=== PATIENT | female | born 2000 | race Caucasian/White ===

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

== ENCOUNTER 2022-10-07 14:58 | Emergency (ER) | payer MEDICAID ==
[~2022-10-07] VITALS: Ht 154.9 cm; Wt 52.8 kg
[2022-10-07 15:22] VITALS: TEMP 97.8
[2022-10-07 16:12] LABS: BILIRUBIN,URINE NEGATIVE (Neg); CLARITY,URINE CLOUDY (Clear); COLOR,URINE YELLOW (Yellow); GLUCOSE, URINE NEGATIVE (Neg); KETONES,URINE TRACE mg/dl (Neg); LEUKOCYTE ESTERASE ,URINE TRACE (Neg); NITRITES, URINE NEGATIVE (Neg); OCCULT BLOOD,URINE TRACE-INTACT (Neg); PROTEIN,URINE NEGATIVE (Neg); URINE HCG NEGATIVE (NEG)
[2022-10-07 16:14] LABS: UA COLLECTION TYPE CLN CATCH MIDSTREAM
[2022-10-07] MEDS ORDERED: iohexol 300mg/ml 100ml inj. ONE (16:21)
[2022-10-07 16:24] LABS: BACTERIA,URINE 2+ /HPF (Neg); SQUAMOUS EPITHELIAL CELL,UR MODERATE /LPF (FEW)
[2022-10-07 16:25] LABS: AMORPHOUS PHOSPHATES 1+
[2022-10-07] MEDS ORDERED: normal saline 1000ml 1,000 ML IV ONE (16:25)
[2022-10-07 16:44] LABS: BASOPHILS % (AUTO) 0.4 % (0-1); EOSINOPHILS # (AUTO) 0.2 X10'3 (0-0.9); EOSINOPHILS % (AUTO) 1.4 % (0-6); HEMATOCRIT 42.6 % (35.0-45.0); HEMOGLOBIN 14.4 g/dl (12.0-16.0); LYMPHOCYTES # (AUTO) 1.6 X10'3 (1.1-4.8); LYMPHOCYTES % (AUTO) 12.1 % (21-51); MEAN CORPUSCULAR HEMOGLOBIN 30.9 PG (27.0-31.0); MEAN CORPUSCULAR HGB CONC 33.7 g/dL (33.0-36.5); MEAN CORPUSCULAR VOLUME 91.6 FL (78-98); MEAN PLATELET VOLUME 8.8 FL (7.4-10.4); MONOCYTES # (AUTO) 0.8 X10'3 (0-0.9); MONOCYTES % (AUTO) 6.1 % (2-12); NEUTROPHILS # (AUTO) 10.2 X10'3 (1.8-7.7); PLATELET COUNT 308 X10'3 (140-440); RED BLOOD COUNT 4.66 X10'6 (4.20-5.60); RED CELL DISTRIBUTION WIDTH 13.1 % (11.5-14.5); WHITE BLOOD COUNT 12.8 X10'3 (4.5-11.0)
[2022-10-07 16:56] LABS: ALANINE AMINOTRANSFERASE 23 U/L (12-78); ALBUMIN 4.4 G/DL (3.4-5.0); ALBUMIN/GLOBULIN RATIO 1.3 (1.1-1.5); ALKALINE PHOSPHATASE 73 IU/L (20-180); ANION GAP 10 (8-16); ASPARTATE AMINO TRANSFERASE 18 U/L (10-37); BILIRUBIN,TOTAL 1.6 MG/DL (0.1-1.0); BLOOD UREA NITROGEN 8 MG/DL (7-18); BUN/CREATININE RATIO 10.7 (10.0-20.0); CALCIUM 9.6 MG/DL (8.5-10.1); CHLORIDE 103 MMOL/L (99-107); CREATININE 0.75 MG/DL (0.40-0.90); GLUCOSE 97 MG/DL (70-104); LIPASE 67 U/L (73-393); POTASSIUM 3.5 MMOL/L (3.5-5.1); SODIUM 138 MMOL/L (135-145); TOTAL CARBON DIOXIDE 24.9 MMOL/L (24-32); TOTAL PROTEIN 7.9 G/DL (6.4-8.2); eCRCL 90 ML/MIN; eGFR > 90 ML/MIN
[2022-10-07] MEDS ORDERED: CefTRIAXone 2gm/D5W 50ml BAG 50 ML IV ONE (17:20)
[2022-10-07] MEDS ORDERED: NITR100C6 PO (18:07)
[2022-10-07 18:43] VITALS: BP 109/72; PULSE 85; RESP 16; O2SAT 98
== END 2022-10-07 18:43 | disposition home or self-care (01) ==
LOC: ER 15:00
DX: R11.2 Nausea with vomiting, unspecified (principal)
CPT/HCPCS: 36415; 74177; 80053; 81001; 81025; 83690; 85025; 87088; 93005; 96361; 96374; 99285; J0696; J3490; J7030; Q9967

== ENCOUNTER 2024-08-01 10:10 | Emergency (ER) | payer MEDICAID ==
[~2024-08-01] VITALS: Ht 157.5 cm; Wt 49.1 kg
[~2024-08-01 10:10] MED LIST changes: +NITR100C6 PO
--- NOTE | 2024-08-01 10:57 | Physician Documentation ---
History of Present Illness ~ Chief Complaint: Complications Stated Complaint: COMPLICATION Time Seen by MD: 10:56 Primary Medical Doctor: Unknown HPI This is a 24-year-old female who presents to the emergency department due to pelvic pain and a report that she has been having decreased movement. No vaginal bleeding or cramping. No urinary symptoms. Recently moved from [place] and has not yet established with an OB locally yet. Medication Reconciliation Allergies: Coded Allergies: No Known Allergies (Unverified , 08/01/24) Scheduled Nitrofurantoin Monohyd/M-Cryst (Macrobid 100 mg Capsule), 1 CAP PO Q12H Ondansetron Hcl (Zofran), 1 TAB PO Q6H Past Medical History Past Medical History: *GI/HEPATOBILIARY*, UTI Past Surgical History: noncontributory Alcohol Use: None Drug Use: none Lives In: Home Review of Systems ROS As stated above in the HPI, otherwise all systems are reviewed and negative. Physical Exam Physical Exam Vital Signs: Temperature: 97.8, Source: Temporal, Heart Rate: 100, Respiratory Rate: 16, BP: 100/67, Pulse Oximetry: 98, Weight: 49.100 Oxygen Flow Rate: 0 Physical Exam General: Alert, no apparent distress. HEENT: PERRL, EOMI, no injection, moist mucous membranes. Neck: Full range of motion. Respiratory: Lungs clear, no respiratory distress. Chest: No accessory muscle use. Cardiovascular: Regular rate and rhythm, no murmurs. Gastrointestinal: Soft, nontender, nondistended. Bowels sounds present. Extremities: Normal range of motion, no deformity. Neurologic: Oriented x4. Psychiatric: Normal mood and affect. Skin: Normal color, warm and dry. No edema, no ecchymosis. 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 No abnormalities were visualized. Results/Orders Results/Orders Orders - STEPHANI QUINTEROS SENIOR BACKUP ADMINISTRATOR US OB (08/01/24 10:22) Completed Orders - STEPHANI QUINTEROS SENIOR BACKUP ADMINISTRATOR US OB (08/01/24 10:22) Ua W/Microscopic, Cult If Ind (08/01/24 10:20) Vital Signs 08/01/24 08/01/24 08/01/24 08/01/24 10:16 11:03 11:08 11:24 Temp 97.8 97.8 97.8 Pulse 100 89 Resp 16 18 18 B/P (MAP) 100/67 99/67 (78) Pulse Ox 98 97 O2 Flow Rate 0 0 Laboratory Tests Test 08/01/24 10:20 Urine Specimen Description Cln catch midstream Urine Color Straw Urine Clarity Slightly cloudy Urine pH 6.5 Urine Specific [place] 1.010 Urine Protein Negative Urine Glucose (UA) Negative Urine Ketones Negative Urine Occult Blood Negative Urine Nitrite Negative Urine Bilirubin Negative Urine Urobilinogen 0.2 Urine Leukocyte Esterase Moderate H Urine RBC None seen Urine WBC 5-10 H Urine Squamous Epithelial Cells Many Urine Bacteria 3+ Urine Mucus Few Urine Culture Indicated Rejected for culture Volume Urine Centrifuged 10 ml Urine Comment EKG/XRAY/CT/US/VASC/MRI Ultrasound : Impression [address] [address] ULTRASOUND Patient: RUBA MCKINNEY Medical Record: [id number] [place] : 2000, Age: 24 Sex: Female Location: ER Patient Status: [facility] ER Service Date/Time: 08/01/241021 Ordering Physician: STEPHANI QUINTEROS SENIOR BACKUP ADMINISTRATOR Exam: US OB LIMITED OB ULTRASOUND > 14 WKS: HISTORY: pelvic pain TECHNIQUE: Multiple real-time grayscale images of the gravid uterus with duplex Doppler color flow and M-mode spectral analysis. COMPARISON: None FINDINGS: IUP single live fetus at 18 weeks 5 days based on composite averages of the BPD, head circumference, abdominal circumference and femur length. Estimated weight 259 grams. heart rate 139 beats per minute. JIAN 12.5 cm MVP 3.9 cm Cervix measures 3.8 cm in length and appears closed. Variable presentation Grade 1 placenta without previa or abruption, in anterior position. IMPRESSION: IUP single live fetus at 18 weeks 5 days AUA corresponding to an ENEDINA of 025. Electronically Signed by:REED MORRIS DO Date & Time: 08/01/241204 Dictated by: REED MORRIS DO Dictation date and time: 08/01/24 1205 Primary Care Provider: NO PRIMARY CARE PROVIDER cc: STEPHANI QUINTEROS NP ~ Medical Decision Making Additional Comment This is a well-appearing 24-year-old female who presents due to concerns for reduced movement and some pelvic pain. Ultrasound was pursued. heart rate 139. Patient denies vaginal bleeding or discharge or pelvic cramping. Departure Time of Disposition: : Disposition: HOME / SELF CARE / HOMELESS Impression: Primary Impression: Pelvic pain Condition: Stable Discharge Instructions: ABCs of , Abdominal Pain During , Pelvic Pain, Female Additional Instructions: Ultrasound done in the emergency department today showed that you are currently 18 weeks six days with an expected due date of 12/28/2024. Baby's heart rate was 139 in the emergency department. Please establish with a local obstetrical provider soon. Please return to the ER if you have vaginal bleeding, rhythmic cramping, or any concerns that you are worse rather than better. Your urinalysis showed possible infection, but this is most likely just a conta minated sample. If your urine culture grows bacteria rather than mixed urogenital suzanne, you will receive a phone call and be started on antibiotics. Referrals: NO PRIMARY CARE PROVIDER (PCP) Education Educated: Patient, Family Educated regarding: diagnosis, treatment, prognosis, need for follow up Signature Scribe Signature: no scribe Attestation: The note accurately reflects work and decisions made by me.Stephani Swenson NP 08/01/24 11:06 STEPHANI QUINTEROS NP Aug 01, 2024 10:57
[2024-08-01 10:58] LABS: BILIRUBIN,URINE NEGATIVE (Neg); CLARITY,URINE SLIGHTLY CLOUDY (Clear); COLOR,URINE STRAW (Yellow); GLUCOSE, URINE NEGATIVE (Neg); KETONES,URINE NEGATIVE (Neg); LEUKOCYTE ESTERASE ,URINE MODERATE (Neg); NITRITES, URINE NEGATIVE (Neg); OCCULT BLOOD,URINE NEGATIVE (Neg); PH,URINE 6.5 (4.8-8.0); PROTEIN,URINE NEGATIVE (Neg); UROBILINOGEN,URINE 0.2 E.U/dL (0.2-1.0)
[2024-08-01 10:59] LABS: UA COLLECTION TYPE CLN CATCH MIDSTREAM
[2024-08-01 11:05] LABS: BACTERIA,URINE 3+ /HPF (Neg); RBC,URINE NONE SEEN /HPF (0-2); SQUAMOUS EPITHELIAL CELL,UR MANY /LPF (FEW)
[2024-08-01 11:06] LABS: MUCUS STRANDS FEW /LPF (Neg)
[2024-08-01 11:08] VITALS: BP 99/67; PULSE 89; RESP 18; O2SAT 97
[2024-08-01 11:24] VITALS: TEMP 97.8
--- NOTE | 2024-08-01 12:07 | RADIOLOGY REPORT ---
LIMITED OB ULTRASOUND > 14 WKS: HISTORY: pelvic pain TECHNIQUE: Multiple real-time grayscale images of the gravid uterus with duplex Doppler color flow an d M-mode spectral analysis. COMPARISON: None FINDINGS: IUP single live fetus at 18 weeks 5 days based on composite averages of the BPD, head circumference, abdominal circumference and femur length. Estimated weight 259 grams. heart rate 139 beats per minute. JIAN 12.5 cm MVP 3.9 cm Cervix measures 3.8 cm in length and appears closed. Variable presentation Grade 1 placenta without previa or abruption, in anterior position. IMPRESSION: IUP single live fetus at 18 weeks 5 days AUA corresponding to an ENEDINA of 12/28/2024.
== END 2024-08-01 11:26 | disposition home or self-care (01) ==
LOC: ER 10:11
DX: O99.612 Diseases of the digestive system complicating pregnancy, second trimester (principal); R10.2 Pelvic and perineal pain; Z79.899 Other long term (current) drug therapy; Z3A.18 18 weeks gestation of pregnancy
CPT/HCPCS: 76815; 81001; 99284